=== PATIENT | female | born 1980 | race Hispanic/Latino ===

== ENCOUNTER 2023-07-06 02:35 | Emergency (ER) | payer BC, OTHER | END 2023-07-06 03:22 | disposition home or self-care (01) | LOC: MADERS 02:35 | DX: T16.2XXA Foreign body in left ear, initial encounter (principal); I10 Essential (primary) hypertension; Z79.899 Other long term (current) drug therapy; X58.XXXA Exposure to other specified factors, initial encounter | CPT/HCPCS: 69200 ==